=== PATIENT | female | born 1945 | race Caucasian/White ===

== ENCOUNTER 2018-02-22 09:36 | Inpatient (IN) ==
[~2018-02-22 09:36] MED LIST: Bacitracin 50,000 UNIT, Polymyxin B Sulfate 500,000 UNIT, Sodium Chloride IRRigation 1,... IR ONE
[2018-02-22] MEDS ORDERED: *HR* FentaNYL (PF) 100 MCG/2 ML VIAL ONE (09:48)
[2018-02-22] MEDS ORDERED: *HR* Propofol 200 MG/20 ML VIAL IVP ONE (09:48)
[2018-02-22] MEDS ORDERED: Dexamethasone 4 MG/ML VIAL ONE (09:48)
[2018-02-22] MEDS ORDERED: *HR* Rocuronium Bromide 50 MG/5 ML VIAL ONE (09:48)
[2018-02-22] MEDS ORDERED: *HR* Succinylcholine 200 MG/10 ML VIAL IVP ONE (09:48)
[2018-02-22] MEDS ORDERED: Ondansetron 4 MG/2 ML VIAL ONE (09:48)
[2018-02-22] MEDS ORDERED: Lidocaine -MPF 2% 2 ML VIAL ONE (09:48)
[2018-02-22] MEDS ORDERED: *HR* Remifentanil 1 MG VIAL IVP ONE (09:49)
[2018-02-22] MEDS ORDERED: CeFAZolin Syr 2,000MG/20 ML 2,000 MG/20 ML SYRINGE IVPB ONE (10:10)
[2018-02-22] MEDS: Ringers Solution, Lactated 1,000 ML IVC SCH ×2 (10:37→14:29)
[2018-02-22] MEDS ORDERED: *HR* Methadone 10 MG TABLET PO ONE (11:22)
[2018-02-22] MEDS ORDERED: *HR* OxyCODONE Immed Rel 5 MG TABLET PO PRN (11:24)
[2018-02-22] MEDS ORDERED: Gabapentin 300 MG CAPSULE PO ONE (11:24)
[2018-02-22] MEDS ORDERED: *HR* HYDROmorphone (PF) 1 MG/ML SYRINGE IVP PRN (11:24)
--- NOTE | 2018-02-22 11:29 | Anesthesia Evaluation PreOp ---
Date of Encounter: 02/22/18 Time of Encounter: 11:26 - Past History Planned Operation: PLIF L4-L5 Cardiac History: HTN, Hyperlipidemia Pulmonary History: Denies Any Significant HX LONG WINDER TENDER History: Other (LLE SCIATIC NERVE PALSY) Other Medical History: GERD (CONTROLLED), Other (CHRONIC ANEMIA) Anesthesia History: No Prior Anesthetic Complications, Past Anesthesia (SCIATIC NERVE, BACK 02/2017) Alcohol Use: none Drug use: none Medications and Allergies Fenofibrate [Tricor] 54 mg PO DAILY 03/01/17 [History] Lisinopril [Zestril] 5 mg PO DAILY 03/01/17 [History] Omeprazole [PriLOSEC] 40 mg PO DAILY 03/01/17 [History] Citalopram Hydrobromide [Citalopram HBr] 20 mg PO BID 09/07/17 [History] Aspirin/Acetaminophen/Caffeine [Excedrin Extra Strength Caplet] 1 tab PO DAILY 02/22/18 [History] Calcium Carbonate/Vitamin D3 [Calcium 500 + Vit D Caplet] 1 tab PO DAILY 02/22/18 [History] Cholecalciferol (D-3) [Vitamin D] 1,000 unit PO DAILY 02/22/18 [History] Cider Vinegar [Apple Cider Vinegar] 1,200 mg PO DAILY 02/22/18 [History] Gabapentin [Neurontin] 600 mg PO HS 02/22/18 [History] Allergy/AdvReac Type Severity Reaction Status Date / Time Cyclobenzaprine AdvReac Vomiting Verified 02/22/18 10:38 [From Flexeril] Sulfa (Sulfonamide AdvReac Vomiting Verified 02/22/18 10:38 Antibiotics) tramadol AdvReac Vomiting Verified 02/22/18 10:38 - Meds/Allergy Pre-op Review Medications Reviewed: Yes Allergies Reviewed: Yes Beta Blockers on Current Med List: No Anesthesia Results - Labs Laboratory Tests 06/21/17 02/20/18 02/20/18 07:38 09:35 09:35 Hgb 10.6 L Hct 33.9 L Plt Count 326 Potassium 3.8 Creatinine 0.92 Est GFR (Non-Af Amer) 60 Calcium 8.9 Serum Total Protein 6.2 L Albumin 3.9 Anesthesia Exam O2 Sat Height 1.52 m Height 1.52 m Height 1.52 m Weight 50.802 kg Weight 50.802 kg Weight 50.802 kg O2 Sat by Pulse Oximetry 97 Vital Signs Temp Pulse Resp BP Pulse Ox 98.2 F 68 18 136/68 97 02/22/18 10:00 02/22/18 10:00 02/22/18 10:00 02/22/18 10:00 02/22/18 10:00 NPO (# of Hours): >MN - HEENT Mallampati: II Teeth: Normal Oral Opening: Greater than 3 - Cardiac Rhythm: Regular - Pulmonary Breath Sounds: bilateral Clear Respiratory Effort: Symmetrical Anesthesia Assess/Plan ASA Score: 2 Monitoring Plan: Standard Monitors Recovery Plan: PACU
--- NOTE | 2018-02-22 12:24 | History & Physical Report ---
Date of Encounter: 02/22/18 Time of Encounter: 12:23 24 Hour HP Update - Instructions Instructions: If the History and Physical is less than 30 days old and was completed prior to A.M. admission and or procedure and has NOT been updated on calendar day of procedure please complete this update prior to performing procedure. - Update Patient reports changes in Medical Condition: No Changes in examination, assessment, or condition: No Changes in Medication: No Preop tests/diagnostics Reviewed: Yes Pre-Op MRSA Screen: Negative Surgery Remains Indicated: Yes Consent for Planned Operative Procedure(s) Verified: Yes - Pre-Operative Checklist Preoperative Checklist Indicated: No Prophylactic Antibiotic Ordered: Yes Home Medications Include Beta Mirna: No Beta Mirna Taken Today (Day of Surgery): No Beta Mirna Taken Yesterday (Day Prior to Surgery): No Is VTE Prophylaxis Indicated?: Yes
[2018-02-22] MEDS ORDERED: EPHEDrine 50 MG/ML VIAL ONE (13:13)
[2018-02-22] MEDS ORDERED: Neostigmine Methylsulfate 3 MG/3 ML SYRINGE ONE (14:48)
[2018-02-22] MEDS ORDERED: *HR* PHENYLEPHRINE 1,000 MCG/10 ML SYRINGE IVP ONE (14:50)
[2018-02-22] MEDS ORDERED: *HR* Morphine 10 MG/ML VIAL ONE (15:25)
--- NOTE | 2018-02-22 15:35 | Orthopedic Operative Note ---
Date of procedure: 02/22/18 Pre-op diagnosis: Lumbar stenosis, lumbar radiculopathy, status post laminectomy Post-op diagnosis: same Operation/Findings: Posterior lumbar interbody fusion L4-L5:The patient successfully underwent general endotracheal anesthesia. The patient was given antibiotics prior to the start of the procedure. Compression boots and stockings were used for deep vein thrombosis prophylaxis. A Ramon catheter was placed. Leads for neuro monitoring were placed on the upper and lower extremities. This included the cranium. The neuro monitoring personnel confirmed there were satisfactory readings prior to the start of the procedure. The patient was turned prone on the Aron table. The back was prepped and draped in the usual sterile fashion. An incision was was marked and centered over the involved L4-L5 levels in the mid line. The incision was deepened through the lumbar fascia. Bovie cautery and Red elevators were used to reflect the paraspinal musculature at the lateral extent of the transverse processes of the involved L4 and L5 levels. Ingrid clamps were placed over the L4 and L5 spinous processes. An intraoperative lateral fluorograph was obtained. A conversation was held between the surgeon and radiologist and both confirmed we had the correct operative levels. We then placed pedicle screws in standard fashion with the aid of fluoroscopy and anatomic landmarks. Briefly a starter awl was used. A gearshift was subsequently used to enter the helicopter pilot hole via a transpedicular route into the vertebral body. The helicopter pilot hole was tapped with an undersized instrument, and subsequently four 6.5 x 40 mm pedicle screws were placed bilaterally at the indicated L4 and L5 levels. The screws were tested with the aid of the neurologic monitoring staff via pedicle screw stimulation. All reading suggested there was no significant cortical wall breech. The screws were also evaluated fluoro- graphically and appeared to be in satisfactory position. We then turned our attention to the decompression portion of the procedure. We removed the supraspinous and interspinous ligaments and subsequently the insertion of the ligamentum flavum on the undersurface of the proximal L4 lamina was dislodged with a curette. We then removed the ligamentum flavum as well as undercut the L4-L5 facets at this L4-L5 level to decompress the lateral recesses. We also performed a L4 laminectomy. After the decompression, which was over and above that which was required to place the interbody graft, the foramen and traversing roots at this L4-L5 level were found to be free and patent. We also took part of the medial facets at L4-L5 in order to aid in the decompression. We then protected the neural elements including the thecal sac and traversing nerve root on the right with a dural retractor. We made an annulotomy into the L4-L5 disc space and then removed entire disc material using Pituitary instruments. We trialed various size grafts after the endplates were prepared for graft insertion. A 10 x 26 enter body graft fit we ll within the L4-L5 disc space. We obtained some bone from the right posterior superior iliac spine through us a separate incision and combined with this with the bone which we had saved from the laminectomy portion of the procedure. This autograft bone was first placed in the anterior portion of the L4-L5 disc space and additional bone was placed within the interbody graft spacer. We then plac ed the interbody graft spacer obliquely across the L4-L5 disc space towards the midline while protecting the neural elements with a root retractor. When the graft was found to be in satisfactory position the senior energy consultant was removed. We then copiously irrigated the wound. We then decorticated the L4 and L5 transverse processes as well as the facet joints of the involved L4 and L5 levels to aid in the posterolateral fusion. We placed autograft bone in the lateral gutters over these regions. We then placed rods within the screw heads of the involved L4 and L5 levels and first locked the distal screws and then subsequently locked the proximal screws so as to improve and reduce the spondylolisthesis previously seen. We then closed the wound in layers with 1 Vicryl for the fascia, 2-0 Vicryl. Subcutaneous tissue, and Dermabond was used for skin closure. Sterile dressings were placed over the wound. The patient was turned supine on a hospital bed and extubated. All sponge instruments and needle counts were correct at the end of the procedure. The patient tolerated the procedure well without complications. Anesthesia: GETA Surgeon: Campos Barreto Jr Was there an corporate law assistant present: No Estimated blood loss (cc): 100 Specimen: None Condition: stable Disposition: PACU
--- NOTE | 2018-02-22 16:22 | Anesthesia Evaluation Post Op ---
Date of Encounter: 02/22/18 Time of Encounter: 16:20 - Vital Signs Vital Signs: Vital Signs/O2 Sat, Most Current Temp Pulse Resp BP Pulse Ox 98.1 F 93 16 138/73 100 02/22/18 16:15 02/22/18 16:15 02/22/18 16:15 02/22/18 16:15 02/22/18 16:15 - Lungs Lungs: Clear Ascult./Percussion - Airway Airway: Non-obstructed - Cardiovascular Regular Rate - Mental Status Mental Status: Alert & Oriented, Answers Appropriately, Baseline Status - Pain Pain Scale: 5 Pain Scale used: Numeric (1 - 10) - Nausea Vomiting Nausea Vomiting: Not Present - Hydration Hydration: Ice chips, Ramon catheter - Discharge PostOp Status: Transfer Patient to floor
[2018-02-22] MEDS ORDERED: Acetaminophen 325 MG TABLET PO PRN (16:48)
[2018-02-22] MEDS ORDERED: Naloxone 0.4 MG/ML INJ IVP PRN (16:48)
[2018-02-22] MEDS ORDERED: Ringers Solution, Lactated 1,000 ML IVC SCH (16:48)
[2018-02-23] MEDS: *HR* OxyCODONE Immed Rel 5 MG TABLET PO PRN ×4 (03:41→21:12)
[2018-02-23] MEDS: *HR* HYDROcodone/Acet 5/325 mg TABLET PO PRN (06:09)
[2018-02-23] MEDS: Acetaminophen/Aspirin/Caffeine TABLET PO SCH (08:10)
[2018-02-23] MEDS: APPLE CIDER VINEGAR PO SCH (08:10)
[2018-02-23] MEDS: Cholecalciferol (D-3) 1,000 UNIT TABLET PO SCH (08:11)
[2018-02-23] MEDS: Fenofibrate 54 MG TABLET PO SCH (08:11)
--- NOTE | 2018-02-23 08:53 | Orthopedics Progress Note ---
Date of Encounter: 02/23/18 Time of Encounter: 08:52 - Assessment and Plan (1) Lumbar stenosis Current Visit: Yes Status: Chronic Qualifiers: Neurogenic claudication status: unspecified Qualified Code(s): M48.061 - Spinal stenosis, lumbar region without neurogenic claudication (2) Lumbar radiculopathy Current Visit: Yes Status: Chronic (3) Status post laminectomy Current Visit: Yes Status: Chronic (4) Status post lumbar spinal fusion Current Visit: Yes Status: Acute Subjective Principal diagnosis: s/p lumbar fusion Interval history: POD#1 Date of procedure: 02/22/18 Pre-op diagnosis: Lumbar stenosis, lumbar radiculopathy, status post laminectomy Post-op diagnosis: same Operation/Findings: Posterior lumbar interbody fusion L4-L5 The patient is without complaints. Afebrile vital signs are stable. Dressing is clean dry and intact. Neurovascularly intact with regard to bilateral lower extremities. Fires all upper and lower extremity motor groups. Assessment :stable. Plan mobilize ,continue analgesics, LSO with all activity, discharge planning. Objective Vital signs: Vital Signs Temp Pulse Resp BP Pulse Ox 02/23/18 06:52 99.3 F 75 18 129/62 95 02/23/18 04:00 98.3 F 75 20 129/73 100 02/23/18 00:33 98.5 F 80 18 114/66 97 02/22/18 19:59 97.9 F 81 18 117/54 96 02/22/18 17:00 98.1 F 93 17 116/72 02/22/18 16:29 98.0 F 89 18 114/51 100 02/22/18 16:15 98.1 F 93 16 138/73 100 02/22/18 16:05 95 16 128/77 99 02/22/18 15:55 98 16 132/68 98 02/22/18 15:45 98.8 F 98 16 129/57 100 02/22/18 10:00 98.2 F 68 18 136/68 97 Intake and Output 02/22/18 02/23/18 02/23/18 23:59 07:59 15:59 Intake Total 580 / 580 200 / 200 240 / 240 Output Total 750 / 750 3025 / 3025 Balance -170 / -170 -2825 / -2825 240 / 240 Intake: IV Fluids 100 / 100 Ancef 2,000 MG In 0.9 % Sodium 100 / 100 Chloride 100 ML @ 200 mls/hr IVPB Q8H [facility] Rx#:[id number] Oral 480 / 480 200 / 200 240 / 240 Output: Urine Amount (Catheter) 100 / 100 Catheter 650 / 650 3025 / 3025 Other: Meal Dinner Breakfast Percent of Meal Consumed 50% Weight 50.86 kg Patient Weight 02/23/18 23:59 Weight 50.86 kg - VTE Documentation of Mechanical Device: Graduated compression elastic hosiery Consult Discharge Plan - Plan Referrals: Belinda Wilkes, [employer] [Primary Care Provider] -
[2018-02-24] MEDS: Acetaminophen/Aspirin/Caffeine TABLET PO SCH (08:17)
[2018-02-24] MEDS: Cholecalciferol (D-3) 1,000 UNIT TABLET PO SCH (08:17)
[2018-02-24] MEDS: Fenofibrate 54 MG TABLET PO SCH (08:17)
[2018-02-24] MEDS ORDERED: Ondansetron 4 MG/2 ML VIAL IVP PRN (08:18)
[2018-02-24] MEDS: APPLE CIDER VINEGAR PO SCH (08:18)
[2018-02-24] MEDS: *HR* HYDROcodone/Acet 5/325 mg TABLET PO PRN ×2 (08:20→18:09)
[2018-02-24] MEDS ORDERED: *HR* Promethazine 25 MG/ML VIAL IVP PRN (08:36)
--- NOTE | 2018-02-24 08:38 | Orthopedics Progress Note ---
Date of Encounter: 02/24/18 Time of Encounter: 08:37 - Assessment and Plan (1) Lumbar stenosis Current Visit: Yes Status: Chronic Qualifiers: Neurogenic claudication status: unspecified Qualified Code(s): M48.061 - Spinal stenosis, lumbar region without neurogenic claudication (2) Lumbar radiculopathy Current Visit: Yes Status: Chronic (3) Status post laminectomy Current Visit: Yes Status: Chronic (4) Status post lumbar spinal fusion Current Visit: Yes Status: Acute Subjective Principal diagnosis: s/p lumbar fusion Interval history: POD#1 Date of procedure: 02/22/18 Pre-op diagnosis: Lumbar stenosis, lumbar radiculopathy, status post laminectomy Post-op diagnosis: same Operation/Findings: Posterior lumbar interbody fusion L4-L5 The patient is without complaints. Afebrile vital signs are stable. Dressing is clean dry and intact. Neurovascularly intact with regard to bilateral lower extremities. Fires all upper and lower extremity motor groups. Assessment :stable. Plan mobilize ,continue analgesics, LSO with all activity, discharge planning. Objective Vital signs: Vital Signs Temp Pulse Resp BP Pulse Ox 02/24/18 07:21 98.4 F 79 15 125/86 98 02/24/18 03:29 99.3 F 02/23/18 23:40 99.9 F H 85 14 119/58 94 02/23/18 19:12 100.4 F H 90 15 100/49 94 02/23/18 17:06 75 104/47 02/23/18 14:51 98.9 F 74 18 99/49 99 02/23/18 11:02 98.3 F 77 18 112/70 93 Intake and Output 02/23/18 02/24/18 02/24/18 23:59 07:59 15:59 Intake Total 50 / 50 Balance 50 / 50 Intake: Oral 50 / 50 Other: Meal Dinner Percent of Meal Consumed 0% # Voids 1 2 Weight 52.6 kg Patient Weight 02/24/18 23:59 Weight 52.6 kg - VTE Documentation of Mechanical Device: Graduated compression elastic hosiery Consult Discharge Plan - Plan Referrals: Belinda Wilkes, [employer] [employer] [Primary Care Provider] -
[2018-02-24 09:34] LABS: Basophils % 0.4 %; Eosinophils % 0.1 %; Hematocrit 27.2 % (35.3-44.9); Hemoglobin 9.1 g/dL (11.5-15.4); Immature Granulocytes % 0.4 % (0-4); Lymphocytes # 0.9 K/mcL (0.6-4.6); Lymphocytes % 8.2 %; Mean Corpuscular HGB Conc 33.5 g/dL (31.6-35.5); Mean Corpuscular Hemoglobin 29.5 pg (28.0-33.3); Mean Corpuscular Volume 88.3 fL (83.0-100.0); Mean Platelet Volume 9.7 fL (9.4-12.4); Monocytes # 0.7 K/mcL (0.0-1.3); Monocytes % 6.7 %; Platelet Count 240 K/mcL (140-400); Red Blood Count 3.08 M/mcL (3.82-4.97); Red Cell Distribution Width 13.5 % (11.5-14.5); Segmented Neutrophils % 84.2 %
[2018-02-24 09:42] LABS: Neutrophils # 8.8 K/mcL (1.6-8.9)
[2018-02-24 09:43] LABS: BUN/Creatinine Ratio 15 (6-26); Blood Urea Nitrogen 11 mg/dL (8-23); Calcium 8.8 mg/dL (8.6-10.3); Carbon Dioxide 25 mEq/L (23-29); Chloride 99 mEq/L (98-107); Glucose 131 mg/dL (70-105); Osmolality,Calculated 275 (280-300); Potassium 3.3 mEq/L (3.5-5.1); Sodium 132 mEq/L (136-145); eGFR For Non-African Americans > 60 (> 60)
--- NOTE | 2018-02-24 11:56 | Discharge Summary ---
Orders not resulted at time of discharge: Pending orders 02/22/18 13:35 XR fluoroscopy <1 hr [XR] Routine 02/24/18 08:36 XR lumbar spine 2-3V [XR] Routine 02/25/18 08:36 XR lumbar spine 2-3V [XR] Routine Date of Encounter: 02/24/18 Time of Encounter: 08:30 - Discharge Diagnosis (1) Lumbar stenosis Priority: Primary Status: Chronic Qualifiers: Neurogenic claudication status: unspecified Qualified Code(s): M48.061 - Spinal stenosis, lumbar region without neurogenic claudication (2) Lumbar radiculopathy Priority: Primary Status: Chronic (3) Status post laminectomy Priority: Primary Status: Chronic (4) Status post lumbar spinal fusion Priority: Primary Status: Acute - Hospital Course Hospital course: Ms. Yousuf Good is a 72 year old female s/p Date of procedure: 02/22/18 Pre-op diagnosis: Lumbar stenosis, lumbar radiculopathy, status post laminectomy Post-op diagnosis: same Operation/Findings: Posterior lumbar interbody fusion L4-L5 The patient had an uneventful postoperative course. Progressed from intravenous analgesic needs to oral analgesic needs only. Remained neurovascularly intact and mobilized satisfactorily. All intraoperative and/or postoperative radiographic studies were satisfactory. Patient is discharged with plan for rehabilitation and follow-up in 2 weeks post discharge on analgesic medication and patient's home medications. Vital Signs Temp Pulse Resp BP Pulse Ox 02/24/18 11:08 98.2 F 76 16 101/56 96 02/24/18 07:21 98.4 F 79 15 125/86 98 02/24/18 03:29 99.3 F 02/23/18 23:40 99.9 F H 85 14 119/58 94 02/23/18 19:12 100.4 F H 90 15 100/49 94 02/23/18 17:06 75 104/47 02/23/18 14:51 98.9 F 74 18 99/49 99 Intake and Output 02/23/18 02/24/18 02/24/18 23:59 07:59 15:59 Intake Total 50 / 50 120 / 120 Balance 50 / 50 120 / 120 Intake: Oral 50 / 50 120 / 120 Other: Meal Dinner Breakfast Percent of Meal Consumed 0% 0% # Voids 1 2 Weight 52.6 kg Patient Weight 02/24/18 23:59 Weight 52.6 kg Short CBC 02/24/18 Range/Units 09:15 WBC 10.4 D (4.3-11.1) K/mcL Hgb 9.1 L D (11.5-15.4) g/dL Hct 27.2 L (35.3-44.9) % Plt Count 240 (140-400) K/mcL Neutrophils # 8.8 (1.6-8.9) K/mcL BMP 02/24/18 Range/Units 09:15 Sodium 132 L (136-145) mEq/L Potassium 3.3 L (3.5-5.1) mEq/L Chloride 99 (98-107) mEq/L Carbon Dioxide 25 (23-29) mEq/L BUN 11 (8-23) mg/dL Creatinine 0.73 (0.60-1.20) mg/dL Glucose 131 H (70-105) mg/dL Calcium 8.8 (8.6-10.3) mg/dL - Time Spent with Patient Total time spent providing and/or coordinating discharge services: - Discharge Medications Prescriptions: OxyCODONE Immed Rel [Roxicodone 5 MG] 5 mg PO Q6HR PRN 7 Days #28 tablet PRN Reason: Severe Pain Promethazine [Phenergan] 12.5 mg PO Q6HR 3 Days #12 tablet Docusate Sodium [Colace] 100 mg PO BID 5 Days #10 capsule Home Medications: Fenofibrate [Tricor] 54 mg PO DAILY 03/01/17 [History] Lisinopril [Zestril] 5 mg PO DAILY 03/01/17 [History] Omeprazole [PriLOSEC] 40 mg PO DAILY 03/01/17 [History] Citalopram Hydrobromide [Citalopram HBr] 20 mg PO BID 09/07/17 [History] Aspirin/Acetaminophen/Caffeine [Excedrin Extra Strength Caplet] 1 tab PO DAILY 02/22/18 [History] Calcium Carbonate/Vitamin D3 [Calcium 500 + Vit D Caplet] 1 tab PO DAILY 02/22/18 [History] Cholecalciferol (D-3) [Vitamin D] 1,000 unit PO DAILY 02/22/18 [History] Cider Vinegar [Apple Cider Vinegar] 1,200 mg PO DAILY 02/22/18 [History] Gabapentin [Neurontin] 600 mg PO HS 02/22/18 [History] Docusate Sodium [Colace] 100 mg PO BID 5 Days #10 capsule 02/24/18 [Rx] OxyCODONE Immed Rel [Roxicodone 5 MG] 5 mg PO Q6HR PRN 7 Days #28 tablet 02/24/18 [Rx] Promethazine [Phenergan] 12.5 mg PO Q6HR 3 Days #12 tablet 02/24/18 [Rx] Allergies/Adverse Reactions: Allergy/AdvReac Type Severity Reaction Status Date / Time Cyclobenzaprine AdvReac Vomiting Verified 02/22/18 10:38 [From Flexeril] Sulfa (Sulfonamide AdvReac Vomiting Verified 02/22/18 10:38 Antibiotics) tramadol AdvReac Vomiting Verified 02/22/18 10:38 Date of admission: 02/22/18 16:27 Primary care physician: Belinda Wilkes CNP Consults: 02/22/18 16:48 Consult to Occupational Therapy [CONS] Routine Comment: Evaluate, develop and implement POC Reason for Consult: Postoperative rehabilitation Does patient have active BEDREST order?: No Is patient medically & hemodynamically stable?: Yes Patient assessed for mobility or mobilized this visit?: No Consult to Physical Therapy [CONS] Routine Comment: Evaluate, develop and implement POC Reason for Consult: Postoperative rehabilitation Does patient have active BEDREST order?: No Is patient medically & hemodynamically stable?: Yes Patient assessed for mobility or mobilized this visit?: No Consult to Spine Navigator [CONS] [CONS] Routine Discharging clinician: Campos Barreto Jr Anticipated date of discharge: 02/24/18 - VTE Documentation of Mechanical Device: Graduated compression elastic hosiery Labs on day of discharge: Labs from last 24 hours 02/24/18 02/24/18 09:15 09:15 WBC 10.4 D RBC 3.08 L Hgb 9.1 L D Hct 27.2 L MCV 88.3 MCH 29.5 MCHC 33.5 RDW 13.5 Plt Count 240 MPV 9.7 Immature Gran % 0.4 Seg Neutrophils % 84.2 Lymphocytes % 8.2 Monocytes % 6.7 Eosinophils % 0.1 Basophils % 0.4 Neutrophils # 8.8 Lymphocytes # 0.9 Monocytes # 0.7 Eosinophils # 0.0 Basophils # 0.0 Sodium 132 L Potassium 3.3 L Chloride 99 Carbon Dioxide 25 BUN 11 Creatinine 0.73 Est GFR ( Amer) > 60 Est GFR (Non-Af Amer) > 60 BUN/Creatinine Ratio 15 Glucose 131 H Calculated Osmolality 275 L Calcium 8.8 - Impressions ITS Impressions Lumbar Spine X-Ray 02/22/18 13:35 IMPRESSION: Interval posterior lumbar fusion at L4-5 without adverse features evident. D/ / Adam Wells MD / Adam Wells MD Interpreting Provider: Adam Wells MD - Patient Status Disposition: Home, Self-Care Condition: Good Functional capacity at discharge: uses cane/walker Overall status at discharge: patient is progressing back to baseline - Discharge Instructions Follow Up With: Belinda Wilkes CNP [Primary Care Provider] - - Diet and Activity Activity: as per physical therapy Diet: advance to your usual diet
[2018-02-24] MEDS ORDERED: 0.9 % Sodium Chloride 500 ML IVC ONE (14:30)
[2018-02-24 15:25] VITALS: BP 98/53
== END 2018-02-24 19:05 | disposition home or self-care (01) | DRG 455 ==
LOC: SAMDAY 09:36 → 3NENU 16:27
PROVIDERS: ADMIT Orthopaedic Surgery Orthopaedic Surgery of the Spine; ATTEND Orthopaedic Surgery Orthopaedic Surgery of the Spine